=== PATIENT | male | born 1965 | race Caucasian/White ===

== ENCOUNTER 2016-11-14 13:16 | Emergency (ER) | payer BC ==
--- NOTE | 2016-11-14 13:23 | ER Document Report ---
ED Medical Screen (RME) - General Stated Complaint: RIGHT SHOULDER PAIN Time seen by provider: 13:20 Mode of Arrival: Ambulatory Information source: Patient Notes: 51-year-old male presents to ED for right shoulder pain since yesterday does not recall any injury. Started yesterday with a pain behind his shoulder blade and then progressed to pain down his right arm. Denies shortness of breath or chest pain. Has a history of elevated blood pressure and cholesterol. Has a history of aortic regurgitation. Mom dad and brother have all due to heart attacks. I have greeted and performed a rapid initial assessment of this patient. A comprehensive ED assessment and evaluation of the patient, analysis of test results and completion of medical decision making process will be conducted by an additional ED providers. TRAVEL OUTSIDE OF THE [place] IN LAST 30 DAYS: No - Related Data Allergies/Adverse Reactions: No Known Allergies Allergy (Unverified 11/14/16 13:21) Past Medical History Endocrine Medical History: Reports: Hx Diabetes Mellitus Type 2
[2016-11-14] MEDS ORDERED: DIAZEPAM INJ 10 MG/2 ML DISP.SYRIN IM ONE (14:30)
[2016-11-14] MEDS ORDERED: KETOROLAC TROMETHAMINE 60 MG/2 ML SDV IM ONE (14:30)
--- NOTE | 2016-11-14 14:37 | ER Document Report ---
ED General - General Chief Complaint: Shoulder Pain Stated Complaint: RIGHT SHOULDER PAIN Mode of Arrival: Ambulatory Notes: 51-year-old male here with complaints of right shoulder pain radiating down past his elbow for the past 2 days. He states that the pain started immediately after he was reaching up into an electrical cabinet and he fell "I pinched my shoulder" and the pain has been progressively worsening since then. He has tried ibuprofen without any relief. He denies any numbness or tingling. He denies chest pain shortness of breath vision change headache. He has a strong family history of cardiac disease. Pain does not get worse with exertion or breathing but it does get worse with ranging the right shoulder and certain movements. He denies any direct impact to the area. TRAVEL OUTSIDE OF THE [place] IN LAST 30 DAYS: No - Related Data Allergies/Adverse Reactions: No Known Allergies Allergy (Unverified 11/14/16 13:21) Past Medical History - General Information source: Patient - Social History Smoking Status: Never Smoker Chew tobacco use (# tins/day): No Frequency of alcohol use: None Drug Abuse: None Family History: Reviewed & Not Pertinent Patient has suicidal ideation: No Patient has homicidal ideation: No Endocrine Medical History: Reports: Hx Diabetes Mellitus Type 2 Renal/ Medical History: Denies: Hx Peritoneal Dialysis Review of Systems - Review of Systems Notes: See history of present illness for pertinent positive review of systems; otherwise all review of systems have been reviewed and are negative Physical Exam - Vital signs Vitals: Temp Pulse Resp BP Pulse Ox 97.5 F 66 18 166/70 H 95 11/14/16 13:21 11/14/16 13:21 11/14/16 13:21 11/14/16 13:21 11/14/16 13:21 - Notes Notes: PHYSICAL EXAMINATION: GENERAL: Well-appearing and in no acute distress. HEAD: Atraumatic, normocephalic. EYES: Pupils equal round and reactive to light, extraocular movements intact, sclera anicteric, conjunctiva are normal. ENT: nares patent, oropharynx clear without exudates. Moist mucous membranes. NECK: Normal range of motion, supple without lymphadenopathy LUNGS: CTAB and equal. No wheezes rales or rhonchi. HEART: Regular rate and rhythm without murmurs ABDOMEN: Soft, no tenderness. No guarding, no rebound BACK: There is exquisite point tenderness to palpation just medial to the right shoulder blade in the area of the parathoracic musculature; there is worsened pain with extension of the right elbow; I am unable to arrange the right shoulder as the patient has significant pain EXTREMITIES: Normal range of motion, no pitting edema. No cyanosis. NEUROLOGICAL: Cranial nerves grossly intact. Normal sensory/motor exams. PSYCH: Normal mood, normal affect. SKIN: Warm, Dry, normal turgor, no rashes or lesions noted Course - Re-evaluation Re-evalutation: 11/14/16 14:35 MEDICAL DECISION MAKING: Concern for muscle strain versus nerve impingement versus dissection versus ACS/ PE The patient has an instigating incident and pain is worsened with range of motion Is very conceivable that this is all musculoskeletal However he does have significant pain and initially he stated that he did not have any instigating incidents I did discuss with him obtaining blood work and a CTA of the chest multiple times however he declined He advised that he is visiting the area and is nearby and will return if symptoms worsen Will give him a dose of intramuscular Valium and Toradol and home with prescription for Valium and meloxicam I urged the patient to return if symptoms worsened and for further workup Patient understands and agrees to the plan of care - Vital Signs Vital signs: Temp Pulse Resp BP Pulse Ox 97.5 F 66 18 166/70 H 95 11/14/16 13:21 11/14/16 13:21 11/14/16 13:21 11/14/16 13:21 11/14/16 13:21 Discharge - Discharge Clinical Impression: Right shoulder pain Qualifiers: Chronicity: acute Qualified Code(s): M25.511 - Pain in right shoulder Condition: Good Disposition: HOME, SELF-CARE Additional Instructions: You were seen in the emergency department at [facility]. You declined blood work and a CT scan of the chest however if you change your mind or symptoms worsen, please return. If you were given any sedating medications ( such as Valium), be sure not to operate heavy machinery (example - driving) and be sure you are not too sedated to walk appropriately. Please followup with your primary physician in the next few days for further management/evaluation. Please return to the emergency department for worsening of symptoms or any symptom that you deem to be concerning or life-threatening. Thank you for allowing us to be part of your care. Prescriptions: Diazepam [Valium 5 mg Tablet] 5 mg PO QIDP PRN #15 tablet PRN Reason: Meloxicam 15 mg PO DAILYP PRN #10 tablet PRN Reason: Referrals: SHONNA HUTTON MD [Primary Care Provider] - Follow up as needed
[2016-11-14 15:51] VITALS: BP 153/72
== END 2016-11-14 15:51 | disposition home or self-care (01) ==
LOC: ER 13:16
DX: M25.511 Pain in right shoulder (principal); W22.8XXA Striking against or struck by other objects, initial encounter
CPT/HCPCS: 99283; 96372; 73030; J3360; J1885